=== PATIENT | male | born 1965 | race Caucasian/White ===

== ENCOUNTER 2018-07-30 13:11 | Outpatient (CLI) | payer MEDICARE, MEDICAID ==
--- NOTE | 2018-07-30 15:20 | RAD ---
BARIUM SWALLOW WITH SPEECH THERAPY: Date: 07/30/18 HISTORY: Difficulty swallowing. Dysphagia, unspecified. R13.10. Feeding difficulties. R63.3. COMPARISON: None. TECHNIQUE/FINDINGS: Multiple consistencies of contrast given to the patient via the speech pathologist. No aspiration or penetration. Please see speech pathologist's report for further details. IMPRESSION: No aspiration or penetration. Fluoro Time: 1.6 minutes. Dose Area Product: 0.709 Gy*cm^2. POS: [facility]
== END 2018-07-30 13:12 | disposition home or self-care (01) ==
LOC: RAD 13:11
PROVIDERS: ATTEND Nurse Practitioner Family
DX: R13.10 Dysphagia, unspecified (principal); R63.3 Feeding difficulties
CPT/HCPCS: 74230

== ENCOUNTER 2018-10-30 09:55 | Day surgery (SDC) | payer MEDICARE, MEDICAID ==
[2018-10-29 12:56] VITALS: BMI 24.0
[2018-10-30] MEDS ORDERED: PROPOFOL 200 MG/20 ML VIAL ONE (14:22)
--- NOTE | 2018-10-31 09:37 | OP ---
DATE OF PROCEDURE: 10/30/2018 PROCEDURES PERFORMED: EGD with gastric biopsy, empiric esophageal dilatation, colonoscopy diagnostic. PREPROCEDURE DIAGNOSES: 1. History of dysphagia or food avoidance with some mild weight loss recently. 2. Constipation. 3. Recent normal comprehensive metabolic profile. CBC October of last year. 4. Modified barium swallow recently showed [id number] swallowing impairment. POSTPROCEDURE DIAGNOSES: 1. Normal EGD except for mild gastritis, nonerosive, biopsies obtained. 2. No overt findings to suggest a cause for dysphagia. Empiric dilatation 54-Tamazight Rogel dilator was performed. Second look showed no defect. 3. Colonoscopy normal except for some retained stool in the rectosigmoid which precluded full visualization in this area. RECOMMENDATION: 1. Consider trial of PPI. 2. Would avoid the alendronate, make sure that is not causing some esophagitis, is contraindicated in individuals with dysphagia, so is the Fosamax, so whichever one he is using that one needs to be stopped. 3. In terms of colorectal cancer screening could consider repeat colonoscopy in 10 years depending on overall health at that time. 4. Await gastric biopsies. ANESTHESIA: TIVA. PROCEDURE IN DETAIL: The patient was informed of the risks, benefits, possible complications of endoscopy including perforation, reaction to medication and aspiration, and informed consent was obtained. The patient was brought to the endoscopy suite, where he was sedated in the gradual fashion. Once he was comfortable, a bite block was placed into his oropharynx. The endoscope was advanced to the esophagus, stomach, and second and third portion of the duodenum and the scope was slowly removed. There was good visualization of the mucosa. The esophagus was normal throughout. There was no evidence of tightness, strictures, lesions, or esophagitis. The stomach was notable for some submucosal erythema, edema. Biopsies were taken of this area of gastritis. His duodenum was normal. Scope was brought back in the stomach. Retroflexed views were normal. There was normal study of the stomach. The scope was removed. Empiric dilatation of the esophagus performed with history of some vague oropharyngeal dysphagia. Second-look showed no defect. The scope was removed. The patient was turned to the room and rectal examination was performed that revealed some stool in the vault. The endoscope was advanced through the anal canal through the colon to the cecum. The rectosigmoid could not be fully visualized secondary to formed stool and it could not be completely broken up and removed or irrigated away. However, the remainder of the colon could be seen well and the fact that the patient had a normal colonoscopy in 2013. No overt lesions were seen, retroflexed views normal. The scope was removed. Job ID: [id number]
== END 2018-10-30 14:01 | disposition home or self-care (01) ==
LOC: SDC 09:55
PROVIDERS: ATTEND Internal Medicine Gastroenterology
PROC: 0DJD8ZZ Inspection of Lower Intestinal Tract, Via Natural or Artificial Opening Endoscopic (ICD-10-PCS; principal; 2018-10-30)
PROC: 0DB68ZX Excision of Stomach, Via Natural or Artificial Opening Endoscopic, Diagnostic (ICD-10-PCS; 2018-10-30)
PROC: 0D757ZZ Dilation of Esophagus, Via Natural or Artificial Opening (ICD-10-PCS; 2018-10-30)
DX: K29.50 Unspecified chronic gastritis without bleeding (principal); K59.00 Constipation, unspecified; R63.4 Abnormal weight loss; R13.12 Dysphagia, oropharyngeal phase; K21.9 Gastro-esophageal reflux disease without esophagitis; M81.0 Age-related osteoporosis without current pathological fracture; Q90.9 Down syndrome, unspecified; E78.5 Hyperlipidemia, unspecified; E03.9 Hypothyroidism, unspecified; F03.90 Unspecified dementia, unspecified severity, without behavioral disturbance, psychotic disturbance, mood disturbance, and anxiety; Z79.83 Long term (current) use of bisphosphonates; Z79.899 Other long term (current) drug therapy
CPT/HCPCS: 88305; 88312; J2704

== ENCOUNTER 2018-11-01 09:41 | Outpatient (CLI) | payer MEDICARE, MEDICAID | END 2018-11-01 09:42 | disposition home or self-care (01) | PROVIDERS: ATTEND Nurse Practitioner Family | DX: R13.10 Dysphagia, unspecified (principal); R63.3 Feeding difficulties | CPT/HCPCS: 74230 ==